=== PATIENT | female | born 1985 | race Two or more races ===

== ENCOUNTER 2018-03-25 13:36 | Emergency (ER) | payer OTHER ==
[2018-03-25] MEDS ORDERED: HYDROcod/ACETAM 5/325 MG TABLET PO STA (14:16)
--- NOTE | 2018-03-25 14:23 | ED Physician Documentation ---
History of Present Illness - Stated complaint Stated Complaint: BI LAT EAR PX/LT LEG PX - Chief complaint Chief Complaint: General - History obtained from History obtained from: Patient - History of Present Illness Timing: Today (This is a 32 -year-old woman with history of sciatica who has multiple complaints including she has cough and cold and she has bilateral ear fullness. Her sciatica is worse than normal and her Flexeril and gabapentin are insufficient. She needs a refill of her tolterodine.) Review of Systems Constitutional: denies: Fever, Chills Ears: reports: Ear pain Nose: reports: Rhinorrhea / runny nose, Congestion Throat: denies: Sore throat GI: denies: Abdominal Pain, Nausea PD PAST MEDICAL HISTORY - Past Medical History Past Medical History: Yes Neuro: Other - Past Surgical History Past Surgical History: No - Present Medications Home Medications: Ambulatory Orders Medication Instructions Recorded Confirmed Hydrocodone/Acetaminophen 1 - 2 each PO Q6H PRN #14 tablet 03/25/18 [Hydrocodon-Acetaminophen 5-325] Tolterodine Tartrate [Detrol LA] 4 mg PO DAILY #30 cap.er.24h 03/25/18 - Allergies Allergies/Adverse Reactions: Allergies Allergy/AdvReac Type Severity Reaction Status Date / Time No Known Drug Allergies Allergy Verified 03/25/18 13:55 - Social History Does the pt smoke?: No Smoking Status: Never smoker Does the pt drink ETOH?: No Does the pt have substance abuse?: No - Immunizations Immunizations are current?: Yes - POLST Patient has POLST: No PD ED PE NORMAL - Vitals Vital signs reviewed: Yes - General General: Alert and oriented X 3, No acute distress - HEENT HEENT: Ears normal, Pharynx benign - Neck Neck: Supple, no meningeal sign, No bony TTP - Abdomen Abdomen: Non tender - Back Back: No spinal TTP - Extremities Extremities: Other (The patient has equal and normal Achilles and patellar reflexes bilaterally. Normal sensation in all areas of the legs. Patient denies saddle anesthesia. Normal strength in flexion-extension at the ankles, knees, and flexion of the hips.) - Neuro Neuro: Alert and oriented X 3, Normal speech Results - Vitals Vitals: Vital Signs - 24 hr 03/25/18 13:50 Temperature 36.4 C L Heart Rate 93 Respiratory 18 Rate Blood Pressure 114/68 O2 Saturation 99 Oxygen O2 Source Room air Departure - Departure Disposition: Home, Self Care Clinical Impression: Viral URI Sciatica Qualifiers: Laterality: bilateral Qualified Code(s): M54.31 - Sciatica, right side; M54.32 - Sciatica, left side Condition: Good Record reviewed to determine appropriate education?: Yes Instructions: ED Viral Syndrome Prescriptions: Hydrocodone/Acetaminophen [Hydrocodon-Acetaminophen 5-325] 1 - 2 each PO Q6H PRN #14 tablet PRN Reason: pain Tolterodine Tartrate [Detrol LA] 4 mg PO DAILY #30 cap.er.24h Comments: Call your doctor to arrange a follow-up appointment, make the next available appointment. In the interim, return anytime if worse or if new symptoms develop.
[2018-03-25 14:45] VITALS: BP 118/70
== END 2018-03-25 14:48 | disposition home or self-care (01) ==
LOC: ED 13:36
DX: J06.9 Acute upper respiratory infection, unspecified (principal); M54.31 Sciatica, right side
CPT/HCPCS: 99283; A9270

== ENCOUNTER 2018-04-27 09:37 | Emergency (ER) | payer OTHER ==
[2018-04-27 10:15] LABS: HCG UR QUAL NEGATIVE
[2018-04-27 10:19] LABS: CLARITY,URINE HAZY (CLEAR); LEUKOCYTE ESTERASE, URINE NEGATIVE (NEGATIVE); NITRITE,URINE NEGATIVE (NEGATIVE); PROTEIN,URINE NEGATIVE (NEGATIVE); UROBILINOGEN,URINE 0.2 (NORMAL) E.U./dL (NORMAL)
[2018-04-27 10:20] LABS: BILIRUBIN,URINE NEGATIVE (NEGATIVE); GLUCOSE, URINE (UA) NEGATIVE (NEGATIVE); KETONES,URINE (UA) 15 mg/dL (NEGATIVE); OCCULT BLOOD,URINE LARGE (NEGATIVE)
[2018-04-27 10:22] LABS: BACTERIA,URINE Few /HPF (None Seen); SQUAMOUS EPITHELIAL CELL,UR FEW Squamous (<= Few)
[2018-04-27] MEDS ORDERED: SODIUM CHLORIDE 0.9% 2,000 ML IV ONE (12:12)
[2018-04-27] MEDS ORDERED: FAMOTIDINE 20 MG in SODIUM CHLORIDE 0.9% 50 ML IV STA (12:13)
[2018-04-27] MEDS ORDERED: KETOROLAC 15 MG/ML VIAL IVP STA (12:13)
[2018-04-27] MEDS ORDERED: ONDANSETRON 4 MG/2 ML VIAL IVP STA (12:13)
[2018-04-27 12:41] LABS: BASOPHILS % (AUTO) 0.2 %; EOSINOPHILS % (AUTO) 0.1 %; HGB - HEMOGLOBIN 14.4 g/dL (12.0-16.0); LYMPHOCYTES # (AUTO) 0.6 10^3/uL (1.5-3.5); LYMPHOCYTES % (AUTO) 7.4 %; MEAN CORPUSCULAR HEMOGLOBIN 29.8 pg (27.0-31.0); MEAN CORPUSCULAR HGB CONC 34.5 g/dL (32.0-36.0); MEAN CORPUSCULAR VOLUME 86.6 fL (81.0-99.0); MEAN PLATELET VOLUME 8.8 fL (7.9-10.8); MONOCYTES # (AUTO) 0.4 10^3/uL (0.0-1.0); MONOCYTES % (AUTO) 4.8 %; NEUTROPHILS % (AUTO) 87.5 %; PLT - PLATELET COUNT 306 10^3/uL (130-450); RED BLOOD COUNT 4.82 10^6/uL (4.20-5.40); RED CELL DISTRIBUTION WIDTH 13.8 % (12.0-15.0); WHITE BLOOD COUNT 8.1 x10^3/uL (4.8-10.8)
[2018-04-27 13:08] LABS: ALBUMIN 3.8 g/dL (3.2-5.5); ALBUMIN/GLOBULIN RATIO 1.4 (1.0-2.2); BILIRUBIN,TOTAL 0.7 mg/dL (0.2-1.0); CREATININE 0.6 mg/dL (0.4-1.0); TOTAL PROTEIN 6.5 g/dL (6.7-8.2)
[2018-04-27 13:32] VITALS: BP 93/60
--- NOTE | 2018-04-27 13:42 | ED Physician Documentation ---
PD HPI ABD PAIN - Stated complaint Stated Complaint: VOMITING,FEVER - Chief complaint Chief Complaint: Abd Pain - Additional information Additional information: 32-year-old female presents the emergency department with nausea, vomiting and diarrhea with associated abdominal cramps. The patient denies any focal area of abdominal pain. The patient denies blood in the vomit or stools. No recent antibiotic usage. No other associated symptoms. No relief with [id number] therapy. No other associated symptoms Review of Systems Constitutional: denies: Fever, Fatigue Eyes: denies: Discharge Ears: denies: Ear pain Nose: denies: Congestion Throat: denies: Sore throat Cardiac: denies: Pedal edema Respiratory: denies: Cough GI: reports: Abdominal Pain, Nausea, Vomiting, Diarrhea : denies: Dysuria Musculoskeletal: denies: Neck pain Neurologic: denies: Generalized weakness Immunocompromised: denies: Chemotherapy PD PAST MEDICAL HISTORY - Past Medical History Neuro: Other - Past Surgical History Past Surgical History: No - Present Medications Home Medications: Ambulatory Orders Medication Instructions Recorded Confirmed Tolterodine Tartrate [Detrol LA] 4 mg PO DAILY #30 cap.er.24h 03/25/18 Ondansetron HCl [Zofran] 4 mg PO Q6HR PRN #30 tablet 04/27/18 - Allergies Allergies/Adverse Reactions: Allergies Allergy/AdvReac Type Severity Reaction Status Date / Time No Known Drug Allergies Allergy Verified 04/27/18 09:50 - Social History Does the pt smoke?: No Smoking Status: Never smoker Does the pt drink ETOH?: No Does the pt have substance abuse?: No - Immunizations Immunizations are current?: Yes - POLST Patient has POLST: No PD ED PE NORMAL - General General: Alert and oriented X 3, No acute distress - HEENT HEENT: Atraumatic, PERRL, EOMI, Ears normal - Cardiac Cardiac: RRR, Strong equal pulses - Respiratory Respiratory: No respiratory distress - Abdomen Abdomen: Soft, Non distended, Other (Generalized abdominal tenderness, no rebound or peritoneal signs) - Derm Derm: Normal color - Extremities Extremities: No deformity, No calf tenderness / cord - Psych Psych: Normal affect Results - Vitals Vitals: Vital Signs - 24 hr 04/27/18 04/27/18 04/27/18 09:49 11:32 13:31 Temperature 36.5 C 37.2 C Heart Rate 107 H 97 95 Respiratory 20 18 14 Rate Blood Pressure 112/65 114/69 93/60 O2 Saturation 98 99 98 Oxygen O2 Source Room air - Labs Labs: Laboratory Tests 04/27/18 04/27/18 04/27/18 10:02 10:02 12:22 WBC 8.1 RBC 4.82 Hgb 14.4 Hct 41.7 MCV 86.6 MCH 29.8 MCHC 34.5 RDW 13.8 Plt Count 306 MPV 8.8 Neut # (Auto) 7.0 H Lymph # (Auto) 0.6 L Armstrong # (Auto) 0.4 Eos # (Auto) 0.0 Baso # (Auto) 0.0 Absolute Nucleated RBC 0.00 Nucleated RBC % 0.0 Sodium Potassium Chloride Carbon Dioxide Anion Gap BUN Creatinine Estimated GFR (MDRD) Glucose Calcium Total Bilirubin AST ALT Alkaline Phosphatase Total Protein Albumin Globulin Albumin/Globulin Ratio Lipase Urine Color YELLOW Urine Clarity HAZY Urine pH 6.0 Ur Specific [place] 1.025 1.025 Urine Protein NEGATIVE Urine Glucose (UA) NEGATIVE Urine Ketones 15 H Urine Occult Blood LARGE Urine Nitrite NEGATIVE Urine Bilirubin NEGATIVE Urine Urobilinogen 0.2 (NORMAL) Ur Leukocyte Esterase NEGATIVE Urine RBC 11-25 H Urine WBC 0-3 Ur Squamous Epith Cells FEW Squamous Urine Bacteria Few Ur Microscopic Review INDICATED Urine Culture Comments NOT INDICATED Urine HCG, Qual NEGATIVE 04/27/18 12:52 WBC RBC Hgb Hct MCV MCH MCHC RDW Plt Count MPV Neut # (Auto) Lymph # (Auto) Armstrong # (Auto) Eos # (Auto) Baso # (Auto) Absolute Nucleated RBC Nucleated RBC % Sodium 139 Potassium 3.3 L Chloride 108 Carbon Dioxide 24 Anion Gap 7.0 BUN 10 Creatinine 0.6 Estimated GFR (MDRD) 116 Glucose 99 Calcium 8.0 L Total Bilirubin 0.7 AST 19 ALT 15 Alkaline Phosphatase 67 Total Protein 6.5 L Albumin 3.8 Globulin 2.7 Albumin/Globulin Ratio 1.4 Lipase 20 L Urine Color Urine Clarity Urine pH Ur Specific [place] Urine Protein Urine Glucose (UA) Urine Ketones Urine Occult Blood Urine Nitrite Urine Bilirubin Urine Urobilinogen Ur Leukocyte Esterase Urine RBC Urine WBC Ur Squamous Epith Cells Urine Bacteria Ur Microscopic Review Urine Culture Comments Urine HCG, Qual PD MEDICAL DECISION MAKING - ED course ED course: Well-appearing, nontoxic well-hydrated individual, on reevaluation the patient has no abdominal tenderness. The patient's symptoms appear to be of a viral etiology and currently the patient appears appropriate for discharge and ongoing outpatient management. I did discuss with the patient this could be early appendicitis or various other surgical etiologies. I discussed warning signs for those conditions and advised returning to the emergency department immediately for any worsening or any concerns Departure - Departure Disposition: 01 Home, Self Care Clinical Impression: Vomiting and diarrhea, Abdominal cramps Condition: Good Instructions: ED Abdominal Pain Unkn Cause, Vomit Diarrhea Self Care Follow-Up: Jackie Coelho MD [Primary Care Provider] - Within 1 week Prescriptions: Ondansetron HCl [Zofran] 4 mg PO Q6HR PRN #30 tablet PRN Reason: Nausea / Vomiting Comments: Please return to the emergency department for worsening symptoms or any concerns
== END 2018-04-27 13:47 | disposition home or self-care (01) ==
LOC: ED 09:37
DX: R11.2 Nausea with vomiting, unspecified (principal); R19.7 Diarrhea, unspecified; R10.84 Generalized abdominal pain
CPT/HCPCS: 36415; 80053; 81001; 81025; 83690; 85025; 96374; 96375; 99283; 99284; J7040; 81003; 87086

== ENCOUNTER 2018-08-01 18:52 | Emergency (ER) | payer OTHER ==
[2018-08-01] MEDS ORDERED: IBUPROFEN 600 MG TABLET PO STA (19:13)
[2018-08-01] MEDS ORDERED: HYDROcod/ACETAM 5/325 MG TABLET PO STA (19:13)
--- NOTE | 2018-08-01 19:16 | ED Physician Documentation ---
History of Present Illness - Stated complaint Stated Complaint: GLF/PX - Chief complaint Chief Complaint: General - History obtained from History obtained from: Patient - History of Present Illness Timing: Yesterday (She has chronic back pain. She fell down stairs yesterday. Hurt her lower neck, her left shoulder, right third through fifth toes and left hip. No loss of consciousness or head injury. She has not taken anything for pain today.) Review of Systems Constitutional: denies: Fever, Chills Nose: reports: Reviewed and negative Cardiac: reports: Reviewed and negative Respiratory: reports: Reviewed and negative PD PAST MEDICAL HISTORY - Past Medical History Neuro: Other - Past Surgical History Past Surgical History: No - Present Medications Home Medications: Ambulatory Orders Medication Instructions Recorded Confirmed Tolterodine Tartrate [Detrol LA] 4 mg PO DAILY #30 cap.er.24h 03/25/18 Ondansetron HCl [Zofran] 4 mg PO Q6HR PRN #30 tablet 04/27/18 Hydrocodone/Acetaminophen 1 - 2 each PO Q6H PRN #7 tablet 08/01/18 [Hydrocodon-Acetaminophen 5-325] Ibuprofen [Motrin] 800 mg PO Q8H PRN #20 tablet 08/01/18 - Allergies Allergies/Adverse Reactions: Allergies Allergy/AdvReac Type Severity Reaction Status Date / Time No Known Drug Allergies Allergy Verified 04/27/18 09:50 - Social History Does the pt smoke?: No Smoking Status: Never smoker Does the pt drink ETOH?: No Does the pt have substance abuse?: No - Immunizations Immunizations are current?: Yes - POLST Patient has POLST: No PD ED PE NORMAL - Vitals Vital signs reviewed: Yes - General General: Alert and oriented X 3, No acute distress - HEENT HEENT: PERRL, EOMI - Neck Neck: Other (Minimal C-spine tenderness around C6) - Cardiac Cardiac: RRR, No murmur - Respiratory Respiratory: No respiratory distress, Clear bilaterally - Abdomen Abdomen: Normal bowel sounds, Soft, Non tender - Extremities Extremities: Other (Mild tenderness over the lateral and posterior left shoulder without limited range of motion. Mild tenderness over the left hip without limited range of motion. No thoracic or lumbar spinal tenderness. Mild tenderness of the fourth and third toes on the right without deformity.) - Neuro Neuro: Alert and oriented X 3, Normal speech - Psych Psych: Normal mood, Normal affect Results - Vitals Vitals: Vital Signs - 24 hr 08/01/18 18:56 Temperature 36.6 C Heart Rate 84 Respiratory 14 Rate Blood Pressure 123/84 H O2 Saturation 100 Oxygen O2 Source Room air - Rads (name of study) XRs Cspine, L hip, R foot, L shoulder Radiology: EMP read contemporaneously (all neg) Departure - Departure Disposition: 01 Home, Self Care Clinical Impression: Fall down stairs Qualifiers: Encounter type: initial encounter Qualified Code(s): W10.8XXA - Fall (on) (from) other stairs and steps, initial encounter Contusion of left shoulder Qualifiers: Encounter type: initial encounter Qualified Code(s): S40.012A - Contusion of left shoulder, initial encounter Neck sprain Qualifiers: Encounter type: initial encounter Qualified Code(s): S13.9XXA - Sprain of joints and ligaments of unspecified parts of neck, initial encounter Sprain of toe, fourth, right Qualifiers: Encounter type: initial encounter Qualified Code(s): S93.504A - Unspecified sprain of right lesser toe(s), initial encounter Contusion of left hip Qualifiers: Encounter type: initial encounter Qualified Code(s): S70.02XA - Contusion of left hip, initial encounter Condition: Good Record reviewed to determine appropriate education?: Yes Instructions: ED Sprain Strain Neck, ED Contusion Soft Tissue Prescriptions: Hydrocodone/Acetaminophen [Hydrocodon-Acetaminophen 5-325] 1 - 2 each PO Q6H PRN #7 tablet PRN Reason: pain Ibuprofen [Motrin] 800 mg PO Q8H PRN #20 tablet PRN Reason: PAIN &/OR FEVER Comments: Follow-up with your doctor in a few days if not improving, return for new or worsening symptoms.
--- NOTE | 2018-08-01 20:20 | XRAY Report ---
Reason: neck pain, fall Procedure Date: 08/01/2018 Accession Number: [id number] / [id number] Procedure: XR - Cervical Spine 2 View CPT Code: FULL RESULT: EXAM: CERVICAL SPINE RADIOGRAPHY EXAM DATE: 08/01/2018 07:59 PM. CLINICAL HISTORY: Neck pain, fall. COMPARISONS: None. TECHNIQUE: 4 views. FINDINGS: Alignment: There is straightening of normal cervical lordosis. There is no subluxation or scoliosis. Bones: The cervical vertebral bodies and posterior elements are well visualized from the skull base through C7-T1. No fracture. No lytic or destructive bone lesion. Disks: Disk height is maintained. Facets: Facet joints appear in satisfactory alignment. Soft Tissues: Trachea is midline. No significant airway narrowing. No apical pneumothorax. IMPRESSION: 1. No fracture, disk height loss or subluxation of the cervical spine. RADIA
--- NOTE | 2018-08-01 20:21 | XRAY Report ---
Reason: hip pain fall Procedure Date: 08/01/2018 Accession Number: [id number] / [id number] Procedure: XR - Hip w/Pelvis 2-3V LT CPT Code: FULL RESULT: EXAM: LEFT HIP RADIOGRAPHY EXAM DATE: 08/01/2018 07:59 PM. CLINICAL HISTORY: Hip pain fall. COMPARISON: None. TECHNIQUE: 2 views. FINDINGS: Bones: Normal. No fractures or bone lesion. Joints: Joint space and alignment appear satisfactory. Soft Tissues: Normal. No soft tissue swelling. IMPRESSION: Negative hip. RADIA
--- NOTE | 2018-08-01 20:23 | XRAY Report ---
Reason: shoulder pain, fall Procedure Date: 08/01/2018 Accession Number: [id number] / [id number] Procedure: XR - Shoulder 3 View LT CPT Code: FULL RESULT: EXAM: LEFT SHOULDER RADIOGRAPHY EXAM DATE: 08/01/2018 07:59 PM. CLINICAL HISTORY: Shoulder pain, fall. COMPARISON: None. TECHNIQUE: 3 views. FINDINGS: Bones: Normal. No fracture or bone lesion. Joints: The glenohumeral and acromioclavicular joints are normal. Soft tissues: The visualized hemithorax is unremarkable. No soft tissue swelling. IMPRESSION: Negative left shoulder. RADIA
--- NOTE | 2018-08-01 20:25 | XRAY Report ---
Reason: foot inj, 3rd-5th toes Procedure Date: 08/01/2018 Accession Number: [id number] / [id number] Procedure: XR - Foot 3 View RT CPT Code: FULL RESULT: EXAM: RIGHT FOOT RADIOGRAPHY EXAM DATE: 08/01/2018 07:59 PM. CLINICAL HISTORY: Foot inj, 3rd-5th toes. COMPARISON: None. TECHNIQUE: 3 views. FINDINGS: Bones: Normal. No fractures or bone lesions. Joints: Normal. No subluxations. Soft Tissues: Normal. No soft tissue swelling. IMPRESSION: No fracture or subluxation. RADIA
[2018-08-01] MEDS ORDERED: HYDROcod/ACET 5/325 Prepack 4 PO STA (20:38)
[2018-08-01 20:57] VITALS: BP 129/85
== END 2018-08-01 20:55 | disposition home or self-care (01) ==
LOC: ED 18:52
DX: S13.9XXA Sprain of joints and ligaments of unspecified parts of neck, initial encounter (principal); S93.504A Unspecified sprain of right lesser toe(s), initial encounter; S40.012A Contusion of left shoulder, initial encounter; S70.02XA Contusion of left hip, initial encounter; W10.8XXA Fall (on) (from) other stairs and steps, initial encounter; Y93.89 Activity, other specified
CPT/HCPCS: 72040; 73030; 73502; 73630; 99283; A9270

== ENCOUNTER 2020-03-16 | Emergency (ER) | payer OTHER ==
--- NOTE | 2020-03-16 16:27 | ED Physician Documentation ---
PD HPI HEENT - Stated complaint Stated Complaint: NECK PX - Chief complaint Chief Complaint: Heent - History obtained from History obtained from: Patient - Additional information Additional information: 5 days of painful lymph node in the left submandibular area. It is worse when she swallows. There is no associated fevers or night sweats. Pain radiates up to the ear. She has a specific concern because she had a parent with non- Hodgkin's lymphoma. Review of Systems Constitutional: denies: Fever, Chills Ears: reports: Reviewed and negative Nose: reports: Reviewed and negative Throat: reports: Reviewed and negative PD PAST MEDICAL HISTORY - Past Medical History Neuro: Other - Past Surgical History Past Surgical History: No - Present Medications Home Medications: Ambulatory Orders Medication Instructions Recorded Confirmed Tolterodine Tartrate [Detrol LA] 4 mg PO DAILY #30 cap.er.24h 03/25/18 03/16/20 Amitriptyline [Elavil] 10 mg 03/16/20 Amoxicillin 500 mg PO TID #30 cap 03/16/20 Gabapentin [Neurontin] 100 mg PO ONCE 03/16/20 03/16/20 - Allergies Allergies/Adverse Reactions: Allergies Allergy/AdvReac Type Severity Reaction Status Date / Time No Known Drug Allergies Allergy Verified 04/27/18 09:50 - Social History Does the pt smoke?: No Smoking Status: Never smoker Does the pt drink ETOH?: No Does the pt have substance abuse?: No - Immunizations Immunizations are current?: Yes - POLST Patient has POLST: No PD ED PE NORMAL - Vitals Vital signs reviewed: Yes - General General: Alert and oriented X 3, No acute distress - HEENT HEENT: PERRL, EOMI, Other (There is a single tender submandibular left-sided lymph node. TM and teeth look normal. Pharynx looks normal.) - Neuro Neuro: Alert and oriented X 3, Normal speech Results - Vitals Vitals: Vital Signs - 24 hr 03/16/20 16:09 Temperature 36.4 C L Heart Rate 100 Respiratory 16 Rate Blood Pressure 138/88 H O2 Saturation 100 Oxygen O2 Source Room air Departure - Departure Disposition: 01 Home, Self Care Clinical Impression: Lymphadenitis Condition: Good Record reviewed to determine appropriate education?: Yes Instructions: ED Cervical Adenitis Abx Tx Prescriptions: Amoxicillin 500 mg PO TID #30 cap Comments: As discussed, the fact that the lymph node is painful, has only been going on for 5 days, is more likely with an infectious or inflammatory condition as opposed to lymphoma. If it is persistent you can follow-up with an ear nose and throat physician for further evaluation and potential biopsy. The closest is in [place], the phone number is [phone]. Return if worsening.
== END 2020-03-16 16:33 | disposition home or self-care (01) ==
CPT/HCPCS: 99282; 99284